=== PATIENT | male | born 1970 | race Caucasian/White ===

== ENCOUNTER 2017-07-17 16:48 | Emergency (ER) | payer BC, OTHER ==
[2017-07-17] MEDS ORDERED: HYDROmorphone 1 MG/ML Syringe IVPUSH ONE (18:08)
[2017-07-17] MEDS ORDERED: Ondansetron 4 MG/2 ML SDV IVPUSH ONE (18:08)
[2017-07-17] MEDS ORDERED: Ketorolac 30 MG/ML SDV IVPUSH STA (18:08)
[2017-07-17] MEDS ORDERED: Tamsulosin 0.4 MG Cap.ER PO ONE (18:09)
--- NOTE | 2017-07-17 18:10 | EDM.PDOC ---
ED HPI GENERAL MEDICAL PROBLEM - General Stated Complaint: ACUTE PAIN IN PELVIC REGION AND BACK Time Seen by Provider: 07/17/17 17:57 Source of Information: Reports: Patient, Family (), RN (Cami) History Limitations: Reports: No Limitations - History of Present Illness INITIAL COMMENTS - FREE TEXT/NARRATIVE: The patient states that he was woken at 02:00 with right flank pain that radiated around to his right lower quadrant. It is shooting, sharp, and throbbing in character. It waxes and wanes, but never completely resolves. The patient has not identified any modifiers. He states that he developed vomiting and some watery diarrhea around 16:00 this afternoon. He took Advil, without relief. No recent fever. No recent urinary symptoms or gross hematuria. No prior similar symptoms. The patient's PCP is Yvonne Martinez at the [facility]. Treatments [employer]: Reports: Acetaminophen Right Flank Pain Score (Numeric/FACES): 9 - Related Data Allergies Allergy/AdvReac Type Severity Reaction Status Date / Time bee venom protein (honey bee) Allergy Anaphylactic Verified 07/17/17 17:00 Shock Penicillins Allergy Hives Verified 07/17/17 17:00 strawberry Allergy Hives Verified 07/17/17 17:00 Home Meds: Home Meds Tamsulosin [Flomax] 1 tab PO QAM PRN #5 cap.er 07/17/17 [Rx] Past Medical History Endocrine/Metabolic History: Reports: Obesity/BMI 30+ - Past Surgical History HEENT Surgical History: Reports: Adenoidectomy, Tonsillectomy Social & Family History - Tobacco Use Smoking Status *Q: Current Every Day Smoker Years of Tobacco use: 26 Packs/Tins Daily: 1 - Caffeine Use Caffeine Use: Reports: Coffee - Recreational Drug Use Recreational Drug Use: No ED ROS GENERAL - Review of Systems Review Of Systems: ROS reveals no pertinent complaints other than HPI. ED EXAM, GENERAL - Physical Exam Exam: See Below Exam Limited By: No Limitations General Appearance: Alert, WD/WN, Mild Distress (Appears uncomfortable) Eye Exam: Bilateral Eye: Normal Inspection Ears: Normal External Exam, Hearing Grossly Normal Nose: Normal Inspection, No Blood Throat/Mouth: Normal Inspection, Normal Lips, Normal Voice, No Airway Compromise Head: Atraumatic, Normocephalic Neck: Normal Inspection, Full Range of Motion Respiratory/Chest: No Respiratory Distress, Lungs Clear, Normal Breath Sounds, No Accessory Muscle Use Cardiovascular: Normal Peripheral Pulses, Regular Rate, Rhythm, No Gallop, No JVD, No Murmur, No Rub Peripheral Pulses: 4+: Radial (L), Radial (R) GI/Abdominal: Normal Bowel Sounds, Soft, No Organomegaly, No Distention, No Abnormal Bruit, No Mass, Tender (Mild tenderness to the far right side of the abdomen. Abdomen otherwise nontender.), Other (Obese) (Male) Exam: Deferred Rectal (Males) Exam: Deferred Back Exam: Normal Inspection, Full Range of Motion, CVA Tenderness (R). No: CVA Tenderness (L) Extremities: Normal Inspection, Normal Range of Motion, No Pedal Edema, Normal Capillary Refill Neurological: Alert, Oriented, Normal Cognition, No Motor/Sensory Deficits Psychiatric: Normal Affect Skin Exam: Warm, Dry, Intact, Normal Color, No Rash Course - Vital Signs Last Recorded V/S: Last Vital Signs Temp 36.8 C 07/17/17 17:01 Pulse 70 07/17/17 17:01 Resp 18 07/17/17 17:01 BP 135/79 07/17/17 17:01 Pulse Ox 98 07/17/17 17:01 - Orders/Labs/Meds Orders: Active Orders 24 hr Category Date Time Status Strain Urine [RC] ASDIRECTED Care 07/17/17 18:08 Active Sodium Chloride 0.9% [Normal Saline] 1,000 ml Med 07/17/17 18:15 Active IV ASDIRECTED Medication Orders Sodium Chloride (Normal Saline) 1,000 mls @ 150 mls/hr IV ASDIRECTED ELLI Last Admin: 07/17/17 18:28 Dose: 150 mls/hr Labs: Laboratory Tests 07/17/17 07/17/17 07/17/17 Range/Units 18:37 18:37 19:15 WBC 19.56 H (4.23-9.07) K/mm3 RBC 4.84 (4.63-6.08) M/mm3 Hgb 15.5 (13.7-17.5) gm/L Hct 45.6 (40.1-51.0) % MCV 94.2 H (79.0-92.2) fl MCH 32.0 (25.7-32.2) pg MCHC 34.0 (32.2-35.5) g/dl RDW Std Deviation 45.1 H (35.1-43.9) fL Plt Count 173 (163-337) K/mm3 MPV 11.1 (9.4-12.3) fl Neutrophils % (Manual) 87 H (40-60) % Band Neutrophils % 0 (0-10) % Lymphocytes % (Manual) 5 L (20-40) % Atypical Lymphs % 0 % Monocytes % (Manual) 7 (2-10) % Eosinophils % (Manual) 0 L (0.8-7.0) % Basophils % (Manual) 1 (0.2-1.2) Platelet Estimate Adequate Plt Morphology Comment Normal RBC Morph Comment Normal Sodium 140 (136-145) mEq/L Potassium 4.5 (3.5-5.1) mEq/L Chloride 105 (98-107) mEq/L Carbon Dioxide 25 (21-32) mEq/L Anion Gap 14.5 (5-15) BUN 19 H (7-18) mg/dL Creatinine 1.4 H (0.7-1.3) mg/dL Est Cr Clr Drug Dosing 81.81 mL/min Estimated GFR (MDRD) 55 (>60) mL/min BUN/Creatinine Ratio 13.6 L (14-18) Glucose 128 H (74-106) mg/dL Calcium 9.5 (8.5-10.1) mg/dL Total Bilirubin 0.5 (0.2-1.0) mg/dL AST 19 (15-37) U/L ALT 29 (16-63) U/L Alkaline Phosphatase 66 (46-116) U/L Total Protein 6.8 (6.4-8.2) g/dl Albumin 3.7 (3.4-5.0) g/dl Globulin 3.1 gm/dL Albumin/Globulin Ratio 1.2 (1-2) Lipase 80 (73-393) U/L Urine Color Yellow (Yellow) Urine Appearance Clear (Clear) Urine pH 6.0 (5.0-8.0) Ur Specific [place] 1.020 (1.005-1.030) Urine Protein Trace H (Negative) Urine Glucose (UA) Negative (Negative) Urine Ketones Negative (Negative) Urine Occult Blood 3+ H (Negative) Urine Nitrite Negative (Negative) Urine Bilirubin Negative (Negative) Urine Urobilinogen 0.2 (0.2-1.0) Ur Leukocyte Esterase Negative (Negative) Urine RBC 5-10 H (0-5) /hpf Urine WBC 0-5 (0-5) /hpf Ur Epithelial Cells 0-5 (0-5) /hpf Urine Bacteria Few (FEW) /hpf Urine Mucus Few (FEW) /hpf Meds: Medications Generic Name Dose Route Start Last Admin Trade Name Freq PRN Reason Stop Dose Admin Sodium Chloride 1,000 mls @ 150 mls/hr 07/17/17 18:15 07/17/17 18:28 Normal Saline IV 150 mls/hr ASDIRECTED ELLI Administration Discontinued Medications Generic Name Dose Route Start Last Admin Trade Name Freq PRN Reason Stop Dose Admin Hydromorphone HCl 1 mg 07/17/17 18:08 07/17/17 18:28 Dilaudid IVPUSH 07/17/17 18:09 1 mg ONETIME ONE Administration Ketorolac Tromethamine 30 mg 07/17/17 18:08 07/17/17 18:26 Toradol IVPUSH 07/17/17 18:09 30 mg ONETIME STA Administration Ondansetron HCl 4 mg 07/17/17 18:08 07/17/17 18:23 Zofran IVPUSH 07/17/17 18:09 4 mg ONETIME ONE Administration Tamsulosin HCl 0.4 mg 07/17/17 18:09 07/17/17 18:29 Flomax PO 07/17/17 18:10 0.4 mg ONETIME ONE Administration - Re-Assessments/Exams Free Text/Narrative Re-Assessment/Exam: 07/17/17 18:10 The patient's history and physical exam strongly suggest a right ureterolith. I have ordered blood work, a urinalysis, and a CT scan of the abdomen and pelvis without contrast. I have ordered a urine strainer. I will treat the patient's pain with IV Dilaudid and IV Toradol. I have also ordered some Flomax and IV Zofran. I have ordered normal saline at 150 mL/hr. 07/17/17 18:54 CT of the abdomen and pelvis without contrast is read by Dr. Jama as: 1. Obstructing distal right ureteral stone measuring 3.67 mm located approximately 2.5 cm from the UVJ. 2. Fatty infiltration within the liver. 3. No additional abnormality is appreciated on noncontrast CT study of the abdomen and pelvis. 07/17/17 19:48 The patient had substantial pain relief with Dilaudid, Toradol, and Flomax. The patient's urinalysis has returned with 3+ occult blood and 5-10 RBCs, but no suggestion of an infection. His WBC count is elevated at 19.56, but with 0% bandemia, and the remainder of his CBC is unremarkable. His CMP is remarkable only for a BUN/Cr of 19/1.4, however, this may be normal, given the patient's size. I will discharge the patient home with [facility]'s prescriptions for Mars and Zofran, plus a prescription for Flomax, that the patient can fill tomorrow. He will be discharged with a urine strainer, and a referral to Dr. Sams. Departure - Departure Time of Disposition: 19:49 Disposition: Home, Self-Care 01 Condition: Fair Clinical Impression: Ureterolithiasis - Discharge Information Prescriptions: Tamsulosin [Flomax] 1 tab PO QAM PRN #5 cap.er PRN Reason: Pain Referrals: Yvonne Martinez PA-C [Primary Care Provider] - Shahid Sams MD [Physician] - Forms: ED Department Discharge Additional Instructions: You were seen in the emergency room for right flank pain, radiating to your lower right abdomen. Workup in the ER included blood work, a urinalysis, and a CT scan of your abdomen and pelvis. The CT scan found a 3.67 mm stone in your right ureter, approximately 1 inch up from your bladder. Given its size and location, you will MOST LIKELY pass this stone on your own. Take [id number] ibuprofen, 3-4 tablets (600-800 mg) every 8 hours, with food, as needed for pain. You may take 1-2 tablets of the prescription pain medicine Mars up to every 6 hours, as needed for pain not relieved by ibuprofen. If you take Mars, do not drive or operate heavy machinery for 10 hours afterward. Mars will likely cause constipation, so consider taking a stool softener. Dissolve one tablet of the anti-nausea medicine Zofran on your tongue up to every 8 hours, as needed for nausea/vomiting. Take one tablet of the anti-spasm medicine Flomax every morning, starting tomorrow morning, 07/18/2017, as prescribed. Stay adequately hydrated. Strain all of your urine. If you capture a stone, take it to your doctor for analysis. If your pain has not improved by the middle of this coming week, please follow- up with the Urologist Dr. Sams. If any other problems, please do not hesitate to return to the ER. - My Orders Last 24 Hours: My Active Orders 07/17/17 18:08 Strain Urine [RC] ASDIRECTED 07/17/17 18:15 Sodium Chloride 0.9% [Normal Saline] 1,000 ml IV ASDIRECTED - Assessment/Plan Last 24 Hours: My Active Orders 07/17/17 18:08 Strain Urine [RC] ASDIRECTED 07/17/17 18:15 Sodium Chloride 0.9% [Normal Saline] 1,000 ml IV ASDIRECTED
[2017-07-17] MEDS ORDERED: Sodium Chloride 0.9% 1,000 ML IV SCH (18:15)
--- NOTE | 2017-07-17 18:40 | CT ---
CT abdomen and pelvis Technique: Multiple axial sections were obtained from above the dome of the diaphragm inferiorly through the pubic symphysis. Intravenous and oral contrast has not been utilized. Study has been performed as a ureteral stone protocol. Findings: Kidneys showed no abnormal calcifications. Right ureter is slightly prominent with mild surrounding inflammatory change seen around the proximal right ureter. These findings are caused by an obstructing distal right ureteral stone measuring about 3.7 mm which is located approximately 2.5 cm from the UVJ. No other abnormal calcifications are seen along the course of the ureters. Visualized lung bases shows nothing acute. Liver shows mild fatty infiltration. No focal abnormality is identified within the liver or within the spleen. Adrenal glands show no nodule. Pancreas is within normal limits. Aorta shows mild atherosclerotic calcification which continues into the iliac vessels. No aneurysm is seen. No retroperitoneal adenopathy or mesenteric abnormalities are seen. No pelvic mass or adenopathy is seen. Appendix not visualized. No free fluid is seen. Impression: 1. Obstructing distal right ureteral stone measuring 3.67 mm located approximately 2.5 cm from the UVJ. 2. Fatty infiltration within the liver. 3. No additional abnormality is appreciated on noncontrast CT study of the abdomen and pelvis. Diagnostic code #3
== END 2017-07-17 20:05 | disposition home or self-care (01) ==
LOC: JD.ED 16:48
DX: N20.1 Calculus of ureter (principal); F17.210 Nicotine dependence, cigarettes, uncomplicated; Z91.030 Bee allergy status; Z88.0 Allergy status to penicillin
CPT/HCPCS: 36415; 74176; 80053; 81001; 83690; 85025; 96361; 96374; 96375; 99284; A9270; J1170; J1885; J2405; J7040

== ENCOUNTER 2022-10-11 14:07 | Emergency (ER) | payer OTHER ==
[2022-10-11] MEDS ORDERED: Sodium Chloride 0.9% 10 ML Syringe FLUSH PRN (15:09)
[2022-10-11] MEDS ORDERED: HYDROmorphone 1 MG/ML Syringe IVPUSH ONE (15:29)
[2022-10-11] MEDS ORDERED: Tamsulosin 0.4 MG Cap.ER PO ONE (15:29)
[2022-10-11] MEDS ORDERED: Ondansetron 4 MG/2 ML SDV IVPUSH ONE (15:29)
[2022-10-11] MEDS ORDERED: Ketorolac 30 MG/ML SDV IVPUSH STA (15:29)
[2022-10-11] MEDS ORDERED: Sodium Chloride 0.9% 1,000 ML IV SCH (15:30)
[2022-10-11] MEDS ORDERED: Sodium Chloride 0.9% 10 ML Syringe FLUSH ONE (15:55)
[2022-10-11] MEDS ORDERED: Iopamidol 612 MG/ML 100 ML Bottle IVPUSH ONE (15:55)
== END 2022-10-11 18:18 | disposition home or self-care (01) ==
LOC: JD.ED 14:07
DX: N13.2 Hydronephrosis with renal and ureteral calculous obstruction (principal); Z88.0 Allergy status to penicillin; Z91.030 Bee allergy status; Z91.018 Allergy to other foods; Z72.0 Tobacco use
CPT/HCPCS: 36415; 74177; 80053; 81001; 85025; 96361; 96374; 96375; 99284; A9270; J1170; J1885; J2405; J3490; J7030; Q9967